=== PATIENT | male | born 1950 | race Caucasian/White ===

== ENCOUNTER 2022-08-02 15:51 | Emergency (ER) | payer OTHER, MEDICARE ==
[~2022-08-02] VITALS: Ht 177.8 cm; Wt 105.7 kg
[2022-08-02 16:05] VITALS: BP_SYST 142
--- NOTE | 2022-08-02 16:13 | NUR ---
RECEIVED PT FROM [facility]. PT BIBS FOR C/O LEFT LEG SWELLING AND REDNESS WHICH STARTED ON SATURDAY. VSS. LEFT FOOT ELEVATED. SIDERAILS UP X2.
--- NOTE | 2022-08-02 16:20 | NUR ---
PT RECEIVING U/S LEFT LOWER LEG.
[2022-08-02 17:01] LABS: BASOPHILS % (AUTO) 0.7 % (0.0-2.0); EOSINOPHILS % (AUTO) 0.5 % (0.0-4.0); HEMATOCRIT 44.9 % (36-54); HEMOGLOBIN 15.4 g/dL (14.0-18.0); LYMPHOCYTES # (AUTO) 0.6 K/uL (1.0-5.5); MEAN CORPUSCULAR HEMOGLOBIN 32 pg (27-31); MEAN CORPUSCULAR HGB CONC 34 % (32-36); MEAN CORPUSCULAR VOLUME 93 fL (79.0-98.0); MONOCYTES # (AUTO) 0.7 K/uL (0.0-1.0); MONOCYTES % (AUTO) 12.9 % (1.7-9.3); NEUTROPHILS # (AUTO) 3.9 K/uL (1.8-7.7); NEUTROPHILS % (AUTO) 73.9 % (40.0-70.0); PLATELET COUNT (AUTO) 172 K/uL (130-430); RED BLOOD CELL COUNT(AUTO) 4.82 MIL/uL (4.2-6.2); RED CELL DISTRIBUTION WIDTH 14.2 % (9.0-15.0); WHITE BLOOD COUNT (AUTO) 5.3 K/uL (4.8-10.8)
[2022-08-02 17:12] LABS: ANION GAP 6 (5-15); CALCIUM 9.2 mg/dL (8.4-11.0); CHLORIDE 102 mmol/L (98-107); CREATININE 1.03 mg/dL (0.55-1.30); GLUCOSE 111 mg/dL (70-99); POTASSIUM 4.9 mmol/L (3.5-5.1); UREA NITROGEN, BLOOD 7 mg/dL (8-21)
[2022-08-02 17:18] LABS: ALANINE AMINOTRANSFERASE 45 U/L (12-78); ASPARTATE AMINOTRANSFERASE 40 U/L (10-37); TOTAL BILIRUBIN 0.8 mg/dL (0.0-1.0)
[2022-08-02] MEDS ORDERED: CEPH-548 PO ×2 (17:18→18:31)
[2022-08-02] MEDS ORDERED: cefTRIAXone 1 GM VIAL IM ONE (17:30)
--- NOTE | 2022-08-02 18:46 | NUR ---
DISCHARGE FORM SIGNED BY PT. PT INFORMED AN AMBULANCE WILL BE AT THE FACILITY AT 1930 TO TRANSPORT HIM BACK TO HIS ASSISTED LIVING. PT VERBALIZED UNDERSTANDING.
[2022-08-02 19:05] VITALS: BP_SYST 138
--- NOTE | 2022-08-02 19:07 | NUR ---
Patient given written and verbal discharge instructions and verbalizes understanding. ER MD discussed with patient the results and treatment provided. Patient in stable condition. ID arm band removed. IV catheter removed intact and dressing applied, no active bleeding. Rx of CEPHALEXIN given. Patient educated on pain management and to follow up with PMD. Pain Scale 0/10. Opportunity for questions provided and answered. Medication side effect fact sheet provided.
== END 2022-08-02 19:05 | disposition home or self-care (01) ==
LOC: SED 15:51
DX: L03.115 Cellulitis of right lower limb (principal); M79.671 Pain in right foot; M79.661 Pain in right lower leg; I10 Essential (primary) hypertension; Z79.899 Other long term (current) drug therapy
CPT/HCPCS: 99285; 93971; 80053; 85025; 36415; 73590; 96372; J0696

== ENCOUNTER 2022-08-05 07:42 | Emergency (ER) | payer OTHER, MEDICARE ==
[~2022-08-05] VITALS: Ht 177.8 cm; Wt 105.7 kg
[~2022-08-05 07:42] MED LIST: CEPH-548 PO
--- NOTE | 2022-08-05 07:42 | NUR ---
CALLED FOR TRIAGE, PT IN WAITING ROOM RESTROOM
[2022-08-05 07:45] VITALS: BP_SYST 145
--- NOTE | 2022-08-05 07:45 | NUR ---
BROUGHT BACK TO BED #7 AND TRIAGED. REPORT GIVEN TO ROSE
--- NOTE | 2022-08-05 08:02 | NUR ---
JAYLA Senior at bedside examining patient.
--- NOTE | 2022-08-05 08:08 | NUR ---
PATIENT TO ED FOR RIGHT LEG CELLULITIS CHECK UP. PATIENT'S RIGHT LEG SWOLLEN NON PITTING AND ELEVATED ON TWO PILLOWS. PATIENT HAS RED PETECHIA GENERALIZED ON CALF. PATIENT WAS IN ED HERE LAST . AND GIVEN PRESCRIPTION. WILL MONITOR PATIENT. WAITING TO SEE MD.
--- NOTE | 2022-08-05 09:02 | NUR ---
Patient given written and verbal discharge instructions and verbalizes understanding. ER MD discussed with patient the results and treatment provided. Patient in stable condition. ID arm band removed. No iv inserted during this visit. Rx will continue from last week. Patient educated on pain management and to follow up with PMD. Pain Scale .Patient denies pain Opportunity for questions provided and answered. Medication side effect fact sheet provided.
== END 2022-08-05 09:02 | disposition home or self-care (01) ==
LOC: SED 07:42
DX: L03.115 Cellulitis of right lower limb (principal); I10 Essential (primary) hypertension; Z79.899 Other long term (current) drug therapy
CPT/HCPCS: 99283

== ENCOUNTER 2022-09-25 12:20 | Emergency (ER) | payer OTHER, MEDICARE ==
[~2022-09-25] VITALS: Ht 177.8 cm; Wt 105.7 kg
[2022-09-25 12:41] VITALS: BP_SYST 145
--- NOTE | 2022-09-25 12:46 | NUR ---
Patient triaged and placed in waiting room. VSS and patient appears in no acute distress at this time. Accompanied by DAUGHTER, awaiting available bed, and MD notified of need for MSE.
[2022-09-25 13:59] LABS: ANION GAP 9 (5-15); CALCIUM 9.2 mg/dL (8.4-11.0); CHLORIDE 103 mmol/L (98-107); CREATININE 0.84 mg/dL (0.55-1.30); GLUCOSE 119 mg/dL (70-99); UREA NITROGEN, BLOOD 10 mg/dL (8-21)
[2022-09-25 14:07] LABS: ALANINE AMINOTRANSFERASE 25 U/L (12-78); ALBUMIN 4.3 g/dL (3.4-4.8); ASPARTATE AMINOTRANSFERASE 23 U/L (10-37); TOTAL BILIRUBIN 0.5 mg/dL (0.0-1.0)
[2022-09-25 14:10] LABS: BASOPHILS # (AUTO) 0.2 K/uL (0.0-0.2); BASOPHILS % (AUTO) 2.5 % (0.0-2.0); EOSINOPHILS % (AUTO) 0.3 % (0.0-4.0); HEMATOCRIT 44.1 % (36-54); HEMOGLOBIN 15.3 g/dL (14.0-18.0); LYMPHOCYTES # (AUTO) 0.6 K/uL (1.0-5.5); LYMPHOCYTES % (AUTO) 8.2 % (20.5-51.5); MEAN CORPUSCULAR HEMOGLOBIN 31 pg (27-31); MEAN CORPUSCULAR HGB CONC 35 % (32-36); MEAN CORPUSCULAR VOLUME 89 fL (79.0-98.0); MONOCYTES # (AUTO) 0.5 K/uL (0.0-1.0); MONOCYTES % (AUTO) 7.1 % (1.7-9.3); NEUTROPHILS # (AUTO) 5.8 K/uL (1.8-7.7); NEUTROPHILS % (AUTO) 81.9 % (40.0-70.0); PLATELET COUNT (AUTO) 227 K/uL (130-430); RED BLOOD CELL COUNT(AUTO) 4.94 MIL/uL (4.2-6.2); RED CELL DISTRIBUTION WIDTH 13.2 % (9.0-15.0); WHITE BLOOD COUNT (AUTO) 7.1 K/uL (4.8-10.8)
--- NOTE | 2022-09-25 14:10 | NUR ---
ER DR. BEAR EXAMINING PT IN TRIAGE
[2022-09-25 15:00] VITALS: BP_SYST 145
--- NOTE | 2022-09-25 15:00 | NUR ---
Patient given written and verbal discharge instructions and verbalizes understanding. ER MD discussed with patient the results and treatment provided. Patient in stable condition. ID arm band removed. NO Rx given. Patient educated on pain management and to follow up with PMD. Pain Scale 0/10. Opportunity for questions provided and answered. Medication side effect fact sheet provided.
== END 2022-09-25 15:00 | disposition home or self-care (01) ==
LOC: SED 12:20
DX: H81.10 Benign paroxysmal vertigo, unspecified ear (principal); I11.0 Hypertensive heart disease with heart failure; I50.9 Heart failure, unspecified; Z79.899 Other long term (current) drug therapy
CPT/HCPCS: 36415; 80053; 84484; 85025; 93005; 99284